=== PATIENT | male | born 1980 | race African-American/Black ===

== ENCOUNTER 2019-01-19 12:50 | Emergency (ER) | payer BC ==
[2019-01-19 14:11] LABS: Absolute Lymphocytes (CBC) 1.1 K/uL (0.7-4.9); Absolute Monocytes 0.5 K/uL (0.1-1.3); Absolute Neutrophil 6.3 K/uL (1.8-8.0); Basophils % 0.6 % (0-1.3); Eosinophils % 1.3 % (0-4.4); Hematocrit 39.3 % (39.6-49.0); Lymphocytes % 13.6 % (15.3-44.8); Monocytes % 6.1 % (3.3-12.3); RBC Red Blood Cell Count 5.06 M/uL (4.33-5.43)
[2019-01-19] MEDS ORDERED: ACETAMINOPHEN 500 MG TAB ONE (14:21)
[2019-01-19 14:25] LABS: Albumin 3.5 g/dL (3.4-5.0); Bilirubin Total 0.9 mg/dL (0.2-1.0); Potassium 3.9 mmol/L (3.5-5.1); Protein, Total 7.6 g/dL (6.4-8.2)
[2019-01-19 14:38] LABS: Urine Blood NEGATIVE (NEG); Urine Glucose NEGATIVE (NEG); Urine Protein 2+ (NEG); Urine Specific Gravity 1.015 (1.005-1.030); Urine pH 5.5 (5.0-7.0)
[2019-01-19 14:51] LABS: Urine Bacteria <20 /HPF (NONE SEEN); Urine RBC <5 /HPF (NONE SEEN)
[2019-01-19 14:52] LABS: Urine Culture Reflex Order NOT NEEDED
--- NOTE | 2019-01-19 15:39 | EDPHYS ---
Physician Documentation [facility] Name: Benjamin Baer III Age: 39 yrs Sex: Male : 1980 Arrival Date: 01/19/2019 Time: 12:51 Bed 25 Private MD: David Cabrera ED Physician Ananda Camejo HPI: 01/19 15:33 This 39 yrs old Black Male presents to ER via Ambulatory with complaints of Blood wa Pressure Problem. 15:33 elevated blood pressure. states feels the top of his head tingling. denies FREEMAN. denies wa dizziness, CP or SOB. Onset: The symptoms/episode began/occurred today. Severity of symptoms: At their worst the symptoms were moderate in the emergency department the symptoms are unchanged. The patient has experienced similar episodes in the past, multiple times. The patient has not recently seen a physician. admits to medication compliance. states has renal insufficiency and getting f/u for it. also states have been trying to lose weight. Historical: - Allergies: 13:13 No Known Allergies; sv - Home Meds: 13:13 lisinopril 20 mg Oral tab 1 tab once daily [Active]; hydralazine 50 mg Oral tab three sv times a day [Active]; carvedilol 25 mg oral tab 1 tab 2 times per day [Active]; spironolactone 25 mg Oral tab 1 tab once daily [Active]; - PMHx: 13:13 Hypertension; kidney failure; sv - PSHx: 13:13 None; sv - Immunization history:: Flu vaccine is up to date. - Social history:: Smoking status: Patient/guardian denies using tobacco. - Ebola Screening: : No symptoms or risks identified at this time. - Family history:: pertinent for hypertension. - Hospitalizations: : No recent hospitalization is reported. ROS: 15:35 Constitutional: Negative for fever, chills, and weight loss, Eyes: Negative for injury, wa pain, redness, and discharge, ENT: Negative for injury, pain, and discharge, Neck: Negative for injury, pain, and swelling, Cardiovascular: Negative for chest pain, palpitations, and edema, Respiratory: Negative for shortness of breath, cough, wheezing, and pleuritic chest pain, Abdomen/GI: Negative for abdominal pain, nausea, vomiting, diarrhea, and constipation, Back: Negative for injury and pain, : Negative for injury, bleeding, discharge, and swelling, MS/Extremity: Negative for injury and deformity, Skin: Negative for injury, rash, and discoloration. 15:35 Neuro: Positive for top of scalp tingling, Negative for altered mental status, dizziness, gait disturbance, headache, loss of consciousness, seizure activity, speech changes, syncope, visual changes, weakness. 15:35 All other systems are negative. Exam: 15:35 Constitutional: This is a well developed, well nourished patient who is awake, alert, wa and in no acute distress. Head/Face: Normocephalic, atraumatic. 15:35 Eyes: Pupils equal round and reactive to light, extra-ocular motions intact. Lids and lashes normal. Conjunctiva and sclera are non-icteric and not injected. Cornea within normal limits. Periorbital areas with no swelling, redness, or edema. ENT: Nares patent. No nasal discharge, no septal abnormalities noted. Tympanic membranes are normal and external auditory canals are clear. Oropharynx with no redness, swelling, or masses, exudates, or evidence of obstruction, uvula midline. Mucous membranes moist. Neck: Trachea midline, no thyromegaly or masses palpated, and no cervical lymphadenopathy. Supple, full range of motion without nuchal rigidity, or vertebral point tenderness. No Meningismus. Chest/axilla: Normal chest wall appearance and motion. Nontender with no deformity. No lesions are appreciated. Cardiovascular: Regular rate and rhythm with a normal S1 and S2. No gallops, murmurs, or rubs. Normal PMI, no JVD. No pulse deficits. Respiratory: Lungs have equal breath sounds bilaterally, clear to auscultation and percussion. No rales, rhonchi or wheezes noted. No increased work of breathing, no retractions or nasal flaring. Abdomen/GI: Soft, non-tender, with normal bowel sounds. No distension or tympany. No guarding or rebound. No evidence of tenderness throughout. Back: No spinal tenderness. No costovertebral tenderness. Full range of motion. Skin: Warm, dry with normal turgor. Normal color with no rashes, no lesions, and no evidence of cellulitis. MS/ Extremity: Pulses equal, no cyanosis. Neurovascular intact. Full, normal range of motion. Psych: Awake, alert, with orientation to person, place and time. Behavior, mood, and affect are within normal limits. 15:35 Constitutional: The patient appears in no acute distress, obese 15:35 Neuro: Orientation: is normal, Mentation: is normal, Cranial nerves: grossly normal, Cerebellar function: is grossly normal, Motor: is normal, Sensation: is normal, Gait: is steady. Vital Signs: 13:13 BP 178 / 112; Pulse 89; Resp 18; Temp 97.8; Pulse Ox 97% ; Weight 136.98 kg; Height 5 sv ft. 10 in. (177.80 cm); Pain 1/10; 13:26 BP 170 / 105; Pulse 88; Resp 19; Pulse Ox 100% on R/A; ca1 13:35 BP 165 / 110; Pulse 87; Resp 19; Pulse Ox 99% on R/A; ca1 14:01 BP 159 / 108; Pulse 76; Resp 18; Pulse Ox 99% on R/A; ca1 14:30 BP 173 / 109; Pulse 75; Resp 18; Pulse Ox 99% on R/A; ca1 15:00 BP 175 / 115; Pulse 75; Resp 19; Pulse Ox 99% on R/A; ca1 15:15 BP 190 / 119; Pulse 74; Resp 19; Pulse Ox 98% on R/A; ca1 15:30 BP 171 / 106; Pulse 74; Resp 18; Pulse Ox 100% on R/A; ca1 13:13 Body Mass Index 43.33 (136.98 kg, 177.80 cm) sv MDM: 13:15 Patient medically screened. wa 15:36 Differential Diagnosis elevated BP. will check for interval worsening of renal fxn. wa consider po meds (pt's own) as due to evenign dose any way. 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 Data reviewed: vital signs, nurses notes, lab test result(s). Test interpretation: by ED physician or midlevel provider: labs noted for proteinuria and renal insufficiency. pt knows his baseline. baseline unchanged. 15:38 Response to treatment: the patient's symptoms have markedly improved after treatment. wa 15:40 ED course: made to take own dose of evening BP meds. pt asymptomatic at d/c. 01/19 13:42 Order name: CMP; Complete Time: 15:18 01/19 13:42 Order name: CBC with Diff; Complete Time: 15:18 ok 01/19 13:42 Order name: Urine Dipstick-Ancillary (obtain specimen); Complete Time: 14:11 ok 01/19 13:42 Order name: Urine Microscopic Only; Complete Time: 15:18 ok 01/19 14:20 Order name: Urine Dipstick--Ancillary (enter results); Complete Time: 15:17 [facility] 01/19 13:42 Order name: Cardiac monitoring; Complete Time: 14:10 ok Administered Medications: 14:05 Drug: Tylenol 1000 mg Route: PO; ca1 15:50 Follow up: Response: No adverse reaction; Pain is decreased ca1 Disposition: 01/19/19 15:39 Discharged to Home. Impression: Elevated Blood Pressure. - Condition is Stable. - Discharge Instructions: Hypertension. - Medication Reconciliation Form, Thank You Letter, Antibiotic Education, Prescription Opioid Use form. - Follow up: Private Physician; When: 2 - 3 days; Reason: Recheck today's complaints. - Problem is new. - Symptoms have improved. - Notes: take your medication as prescribed. follow up with your doctor as discussed for further evaluation Signatures: Dispatcher [employer] Lynda Mandel RN RN Ananda Camejo MD MD ok Nadine Govea RN RN ca1 Corrections: (The following items were deleted from the chart) 15:59 15:39 01/19/2019 15:39 Discharged to Home. Impression: Elevated Blood Pressure. ca1 Condition is Stable. Forms are Medication Reconciliation Form, Thank You Letter, Antibiotic Education, Prescription Opioid Use. Follow up: Private Physician; When: 2 - 3 days; Reason: Recheck today's complaints. Problem is new. Symptoms have improved. wa
--- NOTE | 2019-01-19 15:39 | ER ---
Nurse's Notes [facility] Name: Benjamin Baer III Age: 39 yrs Sex: Male : 1980 Arrival Date: 01/19/2019 Time: 12:51 Bed 25 Private MD: David Cabrera Diagnosis: Elevated Blood Pressure Presentation: 01/19 13:11 Presenting complaint: Patient states: HTN, tingling on the top of the head and pain on sv the right side. Hx of kidney failure and HTN. Transition of care: patient was not received from another setting of care. Onset of symptoms was January 19, 2019. Care prior to arrival: None. 13:11 Method Of Arrival: Ambulatory sv 13:11 Acuity: FAUZIA 2 sv 13:37 Risk Assessment: Do you want to hurt yourself or someone else? Patient reports no ca1 desire to harm self or others. Initial Sepsis Screen: Does the patient meet any 2 criteria? No. Patient's initial sepsis screen is negative. Does the patient have a suspected source of infection? No. Patient's initial sepsis screen is negative. Historical: - Allergies: 13:13 No Known Allergies; sv - Home Meds: 13:13 lisinopril 20 mg Oral tab 1 tab once daily [Active]; hydralazine 50 mg Oral tab three sv times a day [Active]; carvedilol 25 mg oral tab 1 tab 2 times per day [Active]; spironolactone 25 mg Oral tab 1 tab once daily [Active]; - PMHx: 13:13 Hypertension; kidney failure; sv - PSHx: 13:13 None; sv - Immunization history:: Flu vaccine is up to date. - Social history:: Smoking status: Patient/guardian denies using tobacco. - Ebola Screening: : No symptoms or risks identified at this time. - Family history:: pertinent for hypertension. - Hospitalizations: : No recent hospitalization is reported. Screenin:16 Abuse screen: Denies threats or abuse. Denies injuries from another. Nutritional ca1 screening: No deficits noted. Tuberculosis screening: No symptoms or risk factors identified. Fall Risk None identified. Assessment: 13:16 General: Appears in no apparent distress. comfortable, Behavior is calm, cooperative, ca1 appropriate for age. Neuro: Level of Consciousness is awake, alert, obeys commands, Oriented to person, place, time, situation. Cardiovascular: Heart tones S1 S2 present Capillary refill < 3 seconds Patient's skin is warm and dry. Respiratory: Airway is patent Respiratory effort is even, unlabored, Respiratory pattern is regular, symmetrical, Breath sounds are clear bilaterally. GI: Abdomen is round non-distended, Bowel sounds present X 4 quads. Abd is soft and non tender X 4 quads. : No deficits noted. No signs and/or symptoms were reported regarding the genitourinary system. EENT: No deficits noted. No signs and/or symptoms were reported regarding the EENT system. Derm: Skin is intact, is healthy with good turgor, Skin is pink, warm \T\ dry. Musculoskeletal: Circulation, motion, and sensation intact. Capillary refill < 3 seconds. 13:16 Pain: Complains of pain in posterior aspect of right lateral abdomen Pain does not ca1 radiate. Pain at worst was 6 out of 10 on a pain scale. Pain began 4-5 days ago Is intermittent. 14:18 Reassessment: Patient appears in no apparent distress at this time. Patient and/or ca1 family updated on plan of care and expected duration. Pain level reassessed. Patient is alert, oriented x 3, equal unlabored respirations, skin warm/dry/pink. Family at bedside. 15:23 Reassessment: Patient appears in no apparent distress at this time. Patient is alert, ca1 oriented x 3, equal unlabored respirations, skin warm/dry/pink. Dr. Camejo at bedside. 15:46 Reassessment: Dr. Camejo at bedside. Pt denies dizziness, headaches .Pt A\T\Ox4. Stable, ca1 no symptoms reported. Encouraged to continue home meds, visit PCP, dietary and lifestyle modifications instructed. Vital Signs: 13:13 BP 178 / 112; Pulse 89; Resp 18; Temp 97.8; Pulse Ox 97% ; Weight 136.98 kg; Height 5 sv ft. 10 in. (177.80 cm); Pain 1/10; 13:26 BP 170 / 105; Pulse 88; Resp 19; Pulse Ox 100% on R/A; ca1 13:35 BP 165 / 110; Pulse 87; Resp 19; Pulse Ox 99% on R/A; ca1 14:01 BP 159 / 108; Pulse 76; Resp 18; Pulse Ox 99% on R/A; ca1 14:30 BP 173 / 109; Pulse 75; Resp 18; Pulse Ox 99% on R/A; ca1 15:00 BP 175 / 115; Pulse 75; Resp 19; Pulse Ox 99% on R/A; ca1 15:15 BP 190 / 119; Pulse 74; Resp 19; Pulse Ox 98% on R/A; ca1 15:30 BP 171 / 106; Pulse 74; Resp 18; Pulse Ox 100% on R/A; ca1 13:13 Body Mass Index 43.33 (136.98 kg, 177.80 cm) sv ED Course: 12:51 Patient arrived in ED. tw3 12:51 David Cabrera MD is Private Physician. tw3 13:12 Triage completed. sv 13:14 Arm band placed on. sv 13:15 Ananda Camejo MD is Attending Physician. wa 13:16 Patient has correct armband on for positive identification. Bed in low position. Call ca1 light in reach. Side rails up X 1. Pulse ox on. NIBP on. Warm blanket given. 13:16 No provider procedures requiring assistance completed. ca1 13:32 Nadine Govea, [place] is Primary Nurse. ca1 13:58 Initial lab(s) drawn, by ut, sent to lab. Inserted saline lock: 20 gauge in left lt1 forearm, using aseptic technique. 15:58 IV discontinued, intact, bleeding controlled, No redness/swelling at site. Pressure ca1 dressing applied. Administered Medications: 14:05 Drug: Tylenol 1000 mg Route: PO; ca1 15:50 Follow up: Response: No adverse reaction; Pain is decreased ca1 Outcome: 15:39 Discharge ordered by . wa 15:58 Discharged to home ambulatory. ca1 15:58 Condition: stable 15:58 Discharge instructions given to patient, Instructed on discharge instructions, follow up and referral plans. Demonstrated understanding of instructions, follow-up care. 15:59 Patient left the ED. ca1 Signatures: Lynda Garcia, AL MELENDEZ Elvira Tracey tw3 Ananda Camejo MD MD ny Nadine Govea RN RN ca1 Padmini Tolentino lt1 Corrections: (The following items were deleted from the chart) 13:14 13:11 Acuity: FAUZIA 3 sv sv 13:37 13:16 Assist provider with bone marrow aspiration ca1 ca1 13:39 13:16 Pain: Complains of pain in posterior aspect of right lateral abdomen Pain does ca1 not radiate. Pain currently is 6 out of 10 on a pain scale. Pain began Is intermittent, ca1
== END 2019-01-19 15:59 | disposition home or self-care (01) ==
LOC: ER 12:50
DX: I12.9 Hypertensive chronic kidney disease with stage 1 through stage 4 chronic kidney disease, or unspecified chronic kidney disease (principal); N18.9 Chronic kidney disease, unspecified
CPT/HCPCS: 36415; 80053; 81003; 81015; 85025; 99284

== ENCOUNTER 2020-04-05 10:55 | Observation (INO) | payer BC ==
--- OUTSIDE RECORDS SUMMARY | 2020-04-05 11:37 | XMS REPORT | Continuity of Care Document ---
:1980 Author Organization [facility] t Address [address] [place] [address] Dr. Sandoval [address] [place] [id number] Care Team Providers Name Role Phone Unavailable Unavailable Unavailable Problems This patient has no known problems. Allergies, Adverse Reactions, Alerts This patient has no known allergies or adverse reactions. Medications This patient has no known medications. Procedures This patient has no known procedures. Results This patient has no known results.
[2020-04-05 12:24] LABS: Absolute Lymphocytes (CBC) 1.2 K/uL (0.7-4.9); Basophils % 0.5 % (0-1.3); Hematocrit 33.6 % (39.6-49.0); MPV 9.2 fL (7.6-11.3)
--- NOTE | 2020-04-05 13:11 | ER ---
Nurse's Notes [facility] Name: Benjamin Baer III Age: 40 yrs Sex: Male : 1980 Arrival Date: 04/05/2020 Time: 11:06 Bed 17 Private MD: Diagnosis: Hyperkalemia;Acute on Chronic Renal Failure Presentation: 04/05 11:17 Chief complaint: Dry mouth z 1 hour. 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 hb Coronavirus screen: Proceed with normal triage. Ebola Screen: No symptoms or risks identified at this time. Initial Sepsis Screen: Does the patient meet any 2 criteria? No. Patient's initial sepsis screen is negative. Does the patient have a suspected source of infection? No. Patient's initial sepsis screen is negative. Risk Assessment: Do you want to hurt yourself or someone else? Patient reports no desire to harm self or others. Onset of symptoms was April 05, 2020. 11:17 Method Of Arrival: Ambulatory hb 11:17 Acuity: FAUZIA 3 hb Historical: - Allergies: 11:19 No Known Allergies; hb - Home Meds: 11:19 carvedilol 25 mg Oral tab 1 tab 2 times per day [Active]; hydralazine 50 mg Oral tab hb three times a day [Active]; lisinopril 20 mg Oral tab 1 tab once daily [Active]; spironolactone 25 mg Oral tab 1 tab once daily [Active]; - PMHx: 11:19 Hypertension; kidney failure; hb - PSHx: 11:19 None; hb - Immunization history:: Adult Immunizations up to date. - Social history:: Smoking status: Patient denies any tobacco usage or history of. Screenin:29 Abuse screen: Denies threats or abuse. Nutritional screening: No deficits noted. Tuberculosis screening: No symptoms or risk factors identified. Fall Risk None identified. Assessment: 12:30 General: Appears in no apparent distress. Behavior is calm, cooperative, appropriate for age. Pain: Denies pain. Neuro: Level of Consciousness is awake, alert, Oriented to person, place, time, situation. Cardiovascular: Capillary refill < 3 seconds Patient's skin is warm and dry. Respiratory: Airway is patent Respiratory effort is even, unlabored. GI: Abdomen is obese. :. EENT: Reports dry mouth, maybe related to a new medication he started about 3 weeks ago, amlodipine. EENT: Reports. Derm: Skin is intact, is healthy with good turgor. 13:30 Reassessment: Patient and/or family updated on plan of care and expected duration. Pain ah level reassessed. Patient is alert, oriented x 3, equal unlabored respirations, skin warm/dry/pink. awaiting on lab results Patient denies pain at this time. 14:00 Reassessment: No reaction noted to medications. 15:00 Reassessment: Awaiting on room assignment. 15:50 Reassessment: Attempted to call report, Nurse took pt down and not available at this ah time. Vital Signs: 11:17 BP 116 / 75; Pulse 70; Resp 16; Temp 97.1; Pulse Ox 96% ; Weight 131.54 kg; Height 5 hb ft. 10 in. (177.80 cm); Pain 0/10; 12:10 BP 134 / 80 LA Supine (man/lg); Pulse 65; Pulse Ox 98% on R/A; jp3 12:13 BP 124 / 73 LA Sitting (man/lg); Pulse 73; Pulse Ox 99% on R/A; jp3 12:15 BP 119 / 72 LA Standing (auto/lg); Pulse 69; Pulse Ox 97% on R/A; jp3 13:00 BP 131 / 77; Pulse 76; Resp 16; Pulse Ox 99% ; ah 14:00 BP 113 / 68; Pulse 65; Resp 16; Pulse Ox 97% ; ah 15:00 BP 122 / 78; Pulse 59; Resp 18; Pulse Ox 98% ; ah 11:17 Body Mass Index 41.61 (131.54 kg, 177.80 cm) hb 12:10 pt states: "felt uncomfortable; like falling backwards" jp3 12:13 pt states: " feel normal" jp3 12:15 pt states: "feel normal" jp3 ED Course: 11:06 Patient arrived in ED. hb 11:16 Chente Lara MD is Attending Physician. kdr 11:18 Triage completed. hb 11:19 Arm band placed on. hb 11:40 Bed in low position. Call light in reach. Verbal reassurance given. Pulse ox on. NIBP jp3 on. 12:00 Initial lab(s) drawn, by me, sent to lab. Patient maintains SpO2 saturation greater jp3 than 95% on room air. 12:29 Carline Graham, RN is Primary Nurse. 12:49 Notified ED physician of a critical lab result(s). Potassium 6.0. ll1 13:11 Luc Ortiz MD is Hospitalizing Provider. kdr 13:11 Inserted saline lock: 20 gauge in right antecubital area, using aseptic technique. jp3 14:25 EKG done, by ED staff, reviewed by Chente Lara MD. jp3 16:04 No provider procedures requiring assistance completed. Patient admitted, IV remains in ah place. Administered Medications: 12:35 Drug: Insulin Regular Human 10 units {Co-Signature: vc (Marry Richter RN).} Route: ah IVP; Site: right antecubital; 15:39 Follow up: Response: No adverse reaction 13:00 Drug: Albuterol - atroVENT (3:1) (2.5 mg - 0.5 mg) 3 ml Route: Nebulizer; 15:40 Follow up: Response: No adverse reaction 13:35 Drug: D50W 50 ml Route: IVP; Site: right antecubital; 15:39 Follow up: Response: No adverse reaction 13:35 Drug: Sodium Bicarbonate 1 amp Route: IVP; Site: right antecubital; 15:39 Follow up: Response: No adverse reaction 13:45 Drug: Calcium Gluconate 1 grams Route: IVPB; Infused Over: 60 mins; Site: right ah antecubital; 15:40 Follow up: Response: No adverse reaction; IV Status: Completed infusion 15:40 Follow up: Response: No adverse reaction; IV Status: Completed infusion Outcome: 13:11 Decision to Hospitalize by Provider. kdr 16:02 Admitted to Med/surg accompanied by tech, via wheelchair, room 207, with chart, Report called to AL Prasad 16:02 Condition: improved 16:02 Instructed on the need for admit. 16:30 Patient left the ED. Signatures: Chente Lara MD MD kdr Baxter, Heather RN RN Terrell Arrington jp3 Carline Graham RN RN Elmo Foster RN RN 1 Marry Richter RN vc Corrections: (The following items were deleted from the chart) 11:49 11:17 Acuity: FAUZIA 4 hb hb 15:09 12:35 Sodium Bicarbonate 1 amp IVP in right antecubital ah ah 15:10 12:35 D50W 50 ml IVP in right antecubital ah ah
[2020-04-05] MEDS ORDERED: ALBUTEROL 2.5 MG/3 ML NEB SOL ONE (13:12)
[2020-04-05] MEDS ORDERED: IPRATROPIUM BROM 0.5MG/2.5ML ONE (13:12)
--- NOTE | 2020-04-05 13:12 | EDPHYS ---
Physician Documentation [facility] Name: Benjamin Baer III Age: 40 yrs Sex: Male : 1980 Arrival Date: 04/05/2020 Time: 11:06 Bed 17 Private MD: ED Physician Chente Lara HPI: 04/05 11:39 This 40 yrs old Black Male presents to ER via Ambulatory with complaints of Dry Mouth. kdr 11:39 The patient states that he was at work this morning and he suddenly began to feel like kdr his mouth was dry and his tongue was numb. He tried drinking water and that did not substantially resolve the sensation. He is normally very hypertensive but today in the ED, he is noted to be relatively hypotensive with SBP less than 120. He is otherwise completely asymptomatic . Onset: The symptoms/episode began/occurred suddenly, just prior to arrival. Severity of symptoms: At their worst the symptoms were mild in the emergency department the symptoms have improved moderately. The patient has not experienced similar symptoms in the past. The patient has been recently seen by a physician: Routine care - did have addition of Amlodipine several weeks ago but has not consistently taken it nor has he taken it today. Historical: - Allergies: 11:19 No Known Allergies; hb - Home Meds: 11:19 carvedilol 25 mg Oral tab 1 tab 2 times per day [Active]; hydralazine 50 mg Oral tab hb three times a day [Active]; lisinopril 20 mg Oral tab 1 tab once daily [Active]; spironolactone 25 mg Oral tab 1 tab once daily [Active]; - PMHx: 11:19 Hypertension; kidney failure; hb - PSHx: 11:19 None; hb - Immunization history:: Adult Immunizations up to date. - Social history:: Smoking status: Patient denies any tobacco usage or history of. ROS: 11:39 Constitutional: Negative for fever, chills, and weight loss, Eyes: Negative for injury, kdr pain, redness, and discharge, Neck: Negative for injury, pain, and swelling, Cardiovascular: Negative for chest pain, palpitations, and edema, Respiratory: Negative for shortness of breath, cough, wheezing, and pleuritic chest pain, Abdomen/GI: Negative for abdominal pain, nausea, vomiting, diarrhea, and constipation, Back: Negative for injury and pain, : Negative for injury, bleeding, discharge, and swelling, MS/Extremity: Negative for injury and deformity, Skin: Negative for injury, rash, and discoloration, Neuro: Negative for headache, weakness, numbness, tingling, and seizure activity. Psych: Negative for depression, anxiety, suicide ideation, homicidal ideation, and hallucinations, Allergy/Immunology: Negative for hives, rash, and allergies, Endocrine: Negative for neck swelling, polydipsia, polyuria, polyphagia, and marked weight changes, Hematologic/Lymphatic: Negative for swollen nodes, abnormal bleeding, and unusual bruising. 11:39 ENT: Positive for Dry tongue, Negative for Teeth pain tinnitus, rhinorrhea. Exam: 11:39 Constitutional: This is a well developed, well nourished patient who is awake, alert, kdr and in no acute distress. Head/Face: Normocephalic, atraumatic. Eyes: Pupils equal round and reactive to light, extra-ocular motions intact. Lids and lashes normal. Conjunctiva and sclera are non-icteric and not injected. Cornea within normal limits. Periorbital areas with no swelling, redness, or edema. Neck: Trachea midline, no thyromegaly or masses palpated, and no cervical lymphadenopathy. Supple, full range of motion without nuchal rigidity, or vertebral point tenderness. No Meningismus. Chest/axilla: Normal chest wall appearance and motion. Nontender with no deformity. No lesions are appreciated. Cardiovascular: Regular rate and rhythm with a normal S1 and S2. No gallops, murmurs, or rubs. Normal PMI, no JVD. No pulse deficits. Respiratory: Lungs have equal breath sounds bilaterally, clear to auscultation and percussion. No rales, rhonchi or wheezes noted. No increased work of breathing, no retractions or nasal flaring. Abdomen/GI: Soft, non-tender, with normal bowel sounds. No distension or tympany. No guarding or rebound. No evidence of tenderness throughout. Back: No spinal tenderness. No costovertebral tenderness. Full range of motion. Skin: Warm, dry with normal turgor. Normal color with no rashes, no lesions, and no evidence of cellulitis. MS/ Extremity: Pulses equal, no cyanosis. Neurovascular intact. Full, normal range of motion. Neuro: Awake and alert, GCS 15, oriented to person, place, time, and situation. Cranial nerves II-XII grossly intact. Motor strength 5/5 in all extremities. Sensory grossly intact. Cerebellar exam normal. Normal gait. Psych: Awake, alert, with orientation to person, place and time. Behavior, mood, and affect are within normal limits. Vital Signs: 11:17 BP 116 / 75; Pulse 70; Resp 16; Temp 97.1; Pulse Ox 96% ; Weight 131.54 kg; Height 5 hb ft. 10 in. (177.80 cm); Pain 0/10; 12:10 BP 134 / 80 LA Supine (man/lg); Pulse 65; Pulse Ox 98% on R/A; jp3 12:13 BP 124 / 73 LA Sitting (man/lg); Pulse 73; Pulse Ox 99% on R/A; jp3 12:15 BP 119 / 72 LA Standing (auto/lg); Pulse 69; Pulse Ox 97% on R/A; jp3 13:00 BP 131 / 77; Pulse 76; Resp 16; Pulse Ox 99% ; ah 14:00 BP 113 / 68; Pulse 65; Resp 16; Pulse Ox 97% ; ah 15:00 BP 122 / 78; Pulse 59; Resp 18; Pulse Ox 98% ; ah 11:17 Body Mass Index 41.61 (131.54 kg, 177.80 cm) hb 12:10 pt states: "felt uncomfortable; like falling backwards" jp3 12:13 pt states: " feel normal" jp3 12:15 pt states: "feel normal" jp3 MDM: 13:11 Patient medically screened. kdr 18:29 Data reviewed: vital signs, nurses notes, lab test result(s), radiologic studies. kdr Counseling: I had a detailed discussion with the patient and/or guardian regarding: the historical points, exam findings, and any diagnostic results supporting the discharge/admit diagnosis, lab results, radiology results, the need for outpatient follow up. 04/05 11:37 Order name: CBC with Diff; Complete Time: 12:51 kdr 04/05 11:37 Order name: Chem 7; Complete Time: 12:51 kdr 04/05 12:38 Order name: Urine Dipstick--Ancillary (enter results) em1 04/05 14:49 Order name: Thyroid Stimulating Hormone EDMS 04/05 14:49 Order name: CBC with Automated Diff [facility] 04/05 14:49 Order name: CBC with Automated Diff [facility] 04/05 14:49 Order name: Comprehensive Metabolic Panel [facility] 04/05 14:49 Order name: Comprehensive Metabolic Panel [facility] 04/05 14:53 Order name: Basic Metabolic Panel [facility] 04/05 11:37 Order name: Urine Dipstick-Ancillary (obtain specimen); Complete Time: 12:24 [facility] 04/05 11:37 Order name: Orthostatic Blood Pressure; Complete Time: 12:24 [facility] 04/05 14:48 Order name: CONS Pharmacy Consult [facility] 04/05 14:49 Order name: CONS Physician Consult [facility] 04/05 14:49 Order name: Renal EDSC Administered Medications: 12:35 Drug: Insulin Regular Human 10 units {Co-Signature: vc (Marry Richter RN).} Route: ah IVP; Site: right antecubital; 15:39 Follow up: Response: No adverse reaction 13:00 Drug: Albuterol - atroVENT (3:1) (2.5 mg - 0.5 mg) 3 ml Route: Nebulizer; ah 15:40 Follow up: Response: No adverse reaction ah 13:35 Drug: D50W 50 ml Route: IVP; Site: right antecubital; ah 15:39 Follow up: Response: No adverse reaction ah 13:35 Drug: Sodium Bicarbonate 1 amp Route: IVP; Site: right antecubital; ah 15:39 Follow up: Response: No adverse reaction ah 13:45 Drug: Calcium Gluconate 1 grams Route: IVPB; Infused Over: 60 mins; Site: right antecubital; 15:40 Follow up: Response: No adverse reaction; IV Status: Completed infusion ah 15:40 Follow up: Response: No adverse reaction; IV Status: Completed infusion Disposition: 04/05/20 13:11 Hospitalization ordered by Luc Ortiz for Observation. Preliminary diagnosis are Hyperkalemia, Acute on Chronic Renal Failure. - Bed requested for Telemetry/MedSurg (observation). - Status is Observation. ah - Condition is Fair. - Problem is new. - Symptoms have improved. Signatures: Dispatcher [employer] EDSC Chente Lara MD MD kdr Martinez, Eric em1 Mickie Ingram, RN RN Carline Villalba, [place] RN Marry Richter RN Corrections: (The following items were deleted from the chart) 14:55 14:49 Basic Metabolic Panel ordered. EDMS EDMS 15:27 13:11 Hospitalization Ordered by Luc Ortiz MD for Observation. Preliminary em1 diagnosis is Hyperkalemia; Acute on Chronic Renal Failure. Bed requested for Telemetry/MedSurg (observation). Status is Observation. Condition is Fair. Problem is new. Symptoms have improved. kdr 16:30 15:27 04/05/2020 13:11 Hospitalization Ordered by Luc Ortiz MD for Observation. Preliminary diagnosis is Hyperkalemia; Acute on Chronic Renal Failure. Bed requested for Telemetry/MedSurg (observation). Status is Observation. Condition is Fair. Problem is new. Symptoms have improved. em1
[2020-04-05] MEDS ORDERED: SODIUM BICARB 50 MEQ/50ML VIAL ONE (13:13)
[2020-04-05] MEDS ORDERED: D50W 25 GM/50 ML SYRINGE/VIAL IV ONE (13:13)
[2020-04-05] MEDS ORDERED: INSULIN -REGULAR HUMAN 50 UNIT/0.5 ML ML ONE ×3 (13:13→13:27)
[2020-04-05 13:27] LABS: Urine Blood NEGATIVE (NEG); Urine Glucose NEGATIVE (NEG); Urine Protein NEGATIVE (NEG); Urine pH 5.5 (5.0-7.0)
[2020-04-05] MEDS ORDERED: CALCIUM GLUCONATE 1gm/100 ML NS (4.65 mEq/100mL) IV ONE ×2 (13:30)
[2020-04-05] MEDS ORDERED: HYDRALAZINE HCL 20 MG/ML VIAL IV PRN (14:41)
[2020-04-05] MEDS ORDERED: MORPHINE 2 MG/ML SYR IV PRN (14:42)
[2020-04-05] MEDS ORDERED: SOD POLYSTYREN SUL 15 GM/60 ML UCUP PO ONE (15:00)
[2020-04-05] MEDS ORDERED: SODIUM BICARB 50 MEQ/50ML VIAL IV ONE (15:00)
--- NOTE | 2020-04-05 15:51 | P.HP ---
Certification for Inpatient Patient admitted to: Observation With expected LOS: <2 Midnights Patient will require the following post-hospital care: None Practitioner: I am a practitioner with admitting privileges, knowledge of patient current condition, hospital course, and medical plan of care. Services: Services provided to patient in accordance with Admission requirements found in Title 42 Section 412.3 of the Code of Federal Regulations Patient History Date of Service: 04/05/20 Reason for admission: dry mouth and throat History of Present Illness: 40 yr old AA male with obesity , HTN , CKD stage III presumed due to HTN nephrosclerosis , with bcr 2.5-2.[address] Guo, On multiple home meds for HTN , s/p recently added Norvasc 2 weeks ago , also advised clonidine 0.2 bid prn elevated systolic above 150 with daily use since last 1 week , developed worsening dry mouth and throat since last 2 days. He denies any dizziness, admit to kilt leg swelling . on arrival at ER , noted with k of 6.2 with cr of 3.1 . no EKG chnages . He is bring admitted for ARF and hyperkalemia . He denies any new salt intake . He is worried about his weight and asking questions on weight loss surgery Home medications list reviewed: Yes - Past Medical/Surgical History Has patient received pneumonia vaccine in the past: No -: HTN, OBESITY Past Surgical History: Reviewed- Non-Contributory - Family History Father -: Hypertension - Social History Smoking Status: Never smoker Smoking therapy provided: No Patient receptive to therapy: No Alcohol use: No CD- Drugs: No Caffeine use: No Place of Residence: Home Review of Systems 10-point ROS is otherwise unremarkable Physical Examination - Vital Signs Blood Pressure: 131/66 Pulse: 74 Respirations: 16 Pulse Ox (%): 99 - Physical Exam General: Alert, In no apparent distress, Oriented x3, Obese HEENT: Atraumatic, Normocephalic, PERRLA Neck: Supple, 2+ carotid pulse no bruit, JVD not distended Cardiovascular: Regular rate/rhythm, Normal S1 S2 Gastrointestinal: Normal bowel sounds, Soft and benign Musculoskeletal: No clubbing, No swelling, Swelling (TRACE TO 1+ B/L PE), Other (TRACE PEDAL EDEMA B/L ) Integumentary: No rashes, No breakdown External genitalia: Deferred - Studies Laboratory Data (last 24 hrs) 04/05/20 12:05: Sodium 136, Potassium 6.0 H*, BUN 49 H, Creatinine 3.19 H, Glucose 111 H 04/05/20 12:05: WBC 6.9, Hgb 11.2 L, Hct 33.6 L, Plt Count 160 Imagings Data: cxr -CLEAR Assessment and Plan - Problems (Diagnosis) (1) ARF (acute renal failure) Current Visit: Yes Status: Acute (2) CKD (chronic kidney disease) stage 3, GFR 30-59 ml/min Current Visit: Yes Status: Acute (3) HTN (hypertension) Current Visit: Yes Status: Acute (4) Hyperkalemia Current Visit: Yes Status: Acute (5) Metabolic acidosis Current Visit: Yes Status: Acute - Advance Directives Does patient have a Living Will: No Does patient have a Durable POA for Healthcare: No Physician Review: Patient Assessed, Agree with Above Assessment and Plan Physician Review Additional Text: # Hyperkalemia - due to losartan and Aldactone use - will hold both now -k- lowering cocktail now -correct met acidosis Dry mouth - may be due to clonidine use -hold clonidine for now -start biotene spray tid # ARF on CKD - may be due to medication use - hold losartan and aldactone - monitor for now -consider Trental use if proteinuria - need for weight loss for 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
[2020-04-05] MEDS ORDERED: NA CHLORIDE 0.9% 1,000 ML IV SCH (16:00)
[2020-04-05] MEDS: INSULIN -REGULAR HUMAN 50 UNIT/0.5 ML ML SQ SCH ×2 (16:30→19:51)
[2020-04-05 16:43] VITALS: O2SAT 98
[2020-04-05] MEDS: CHLORTHALIDONE 25 MG TAB PO SCH (16:54)
[2020-04-05 17:23] VITALS: BMI 41.5
[2020-04-05] MEDS: carvediloL 25 MG TAB PO SCH (17:47)
[2020-04-05 17:52] LABS: Potassium 5.5 mmol/L (3.5-5.1)
[2020-04-05] MEDS: HYDRALAZINE HCL 25 MG TABLET PO SCH (19:50)
[2020-04-06] MEDS: carvediloL 25 MG TAB PO SCH (05:32)
[2020-04-06 06:00] LABS: Absolute Lymphocytes (CBC) 1.4 K/uL (0.7-4.9); Basophils % 0.5 % (0-1.3); Hematocrit 34.9 % (39.6-49.0); Lymphocytes % 23.8 % (15.3-44.8); MPV 8.7 fL (7.6-11.3); RBC Red Blood Cell Count 4.34 M/uL (4.33-5.43)
[2020-04-06 06:50] LABS: Albumin 3.3 g/dL (3.4-5.0); Bilirubin Total 0.5 mg/dL (0.2-1.0); Potassium 4.7 mmol/L (3.5-5.1); Protein, Total 7.4 g/dL (6.4-8.2)
[2020-04-06] MEDS: INSULIN -REGULAR HUMAN 50 UNIT/0.5 ML ML SQ SCH (07:30)
[2020-04-06 08:45] VITALS: BP 124/65; TEMP 97.1
[2020-04-06] MEDS ORDERED: ASPIRIN EC 81 MG TAB PO SCH (09:00)
[2020-04-06] MEDS ORDERED: AMLODIPINE 10 MG TAB PO SCH (09:00)
[2020-04-06] MEDS: CHLORTHALIDONE 25 MG TAB PO SCH (09:00)
[2020-04-06] MEDS: HYDRALAZINE HCL 25 MG TABLET PO SCH (09:44)
--- NOTE | 2020-04-06 09:51 | P.CNS ---
Date of Consult: 04/06/20 Chief Complaint: dry mouth and throat History of Present Illness: 40 yr old Obese AA man with PMhx of HTN , CKD stage III baseline Cr ~ 2.5 Pt presented for worsening dry mouth and difficulty swallowing , his BP meds were changed recently , he was on ARB and aldactone in ER k of 6.2 with cr of 3.1 No fever , chills, sick contact in ER Bp controlled Physical exam general: AAOX3, NAD , obese Neck; Supple, No elevated JVD hear: RRR, normal S1,2 no murmur or rub Chest: CTAB, no rlaes or wheezes Abdomen: Soft , Nt Extremities Ntrace edema A/P MARCELA on CKD IIIb likely AG induced Cr improving now , near baseline Hyperkalmeia resolved due to losartan and aldactone cont to hold for now Agree with chlorthalidone HTN Bp controlled now Cont current meds Dry mouth resolved afebrile, no sick contact possibly med Side effect total time spent 45min pt can be discharged from nephrology point of view to follow with nephrology clinic in 2wks Allergies No Known Allergies Allergy (Verified 04/05/20 16:56) Home Medications: Amlodipine [Norvasc*] 10 mg PO DAILY 04/05/20 Carvedilol [Coreg] 25 mg PO BID 04/05/20 Doxazosin [Cardura*] 2 mg PO BID 04/05/20 Hydralazine HCl [Apresoline] 100 mg PO BID 04/05/20 - Past Medical/Surgical History Diabetic: No -: HTN, OBESITY - Family History Father Medical History: Hypertension - Social History Alcohol use: No CD- Drugs: No Caffeine use: No Place of Residence: Home Physical Examination Temp Pulse Resp BP Pulse Ox 97.1 F 62 16 124/65 98 04/06/20 08:00 04/06/20 08:00 04/06/20 08:00 04/06/20 08:00 04/06/20 08:00 Laboratory Data (last 24 hrs) 04/05/20 12:05: Sodium 136, Potassium 6.0 H*, BUN 49 H, Creatinine 3.19 H, Gluco se 111 H 04/05/20 12:05: WBC 6.9, Hgb 11.2 L, Hct 33.6 L, Plt Count 160
[2020-04-06] MEDS ORDERED: DOXAZOSIN 2 MG TAB PO SCH (21:00)
--- NOTE | 2020-04-07 02:50 | DS ---
Date of Discharge: 04/06/2020 Consultants: Dr. Ballard with Nephrology. Discharge Diagnoses: 1.Hyperkalemia. 2.Metabolic acidosis. 3.Acute on chronic kidney disease stage 3. 4.Essential hypertension. 5.Morbid obesity, BMI of 41. Hospital Course: Patient is a 40-year-old male with past medical history of hypertension, chronic ki dney disease, morbid obesity, comes in with dry mouth and throat. He was found to have elevated pota ssium level of 6.2, creatinine of 3.1, which is above his baseline of about 2.5. Patient was given h yperkalemic cocktail and his potassium was corrected. He was told to hold his losartan. Otherwise, his blood pressure remained stable. Patient was seen by a telegraph dispatcher, Dr. Ballard. He was then cleared for discharge. Patient was doing well otherwise. Patient needs to have close followup with primary care physician and telegraph dispatcher, Dr. Guo in 1-2 weeks and repeat potassium level in 1-2 week s. Return to ER for worsening condition, hold losartan for now. Diet: Renal. Activity: As tolerated. Medications: As per medication reconciliation list. Stop aldactone. Physical Examination: General: Awake alert oriented x3. Morbidly obese male, no acute distress. CV: S1, S2. Respiratory: Moving air well bilaterally. Abdomen: Soft, nontender, nondistended. Positive bowel sounds. Extremities: No clubbing, cyanosis, or edema. Neurologic: Nonfocal. SA/MODL Voice ID: [id number] Report ID: [id number]
== END 2020-04-06 11:14 | disposition home or self-care (01) ==
LOC: ER 10:55 → ERHOLD 14:43 → 2ND 16:04
PROVIDERS: ADMIT Internal Medicine; ATTEND Internal Medicine
DX: N17.9 Acute kidney failure, unspecified (principal); I12.9 Hypertensive chronic kidney disease with stage 1 through stage 4 chronic kidney disease, or unspecified chronic kidney disease; N18.3 Chronic kidney disease, stage 3 (moderate); E87.5 Hyperkalemia; E87.2 Acidosis; E66.01 Morbid (severe) obesity due to excess calories; Z68.41 Body mass index [BMI] 40.0-44.9, adult; Z11.59 Encounter for screening for other viral diseases; Z79.899 Other long term (current) drug therapy
CPT/HCPCS: 96365; 93005; 85025 ×2; 80048 ×2; 36415; 82947 ×3; 84443; 81003; 80053; 96375; 99285; 96366; U0002; J0610; J7030 ×2; G0378 ×3

== ENCOUNTER 2020-09-08 14:23 | Emergency (ER) | payer BC ==
--- OUTSIDE RECORDS SUMMARY | 2020-09-08 14:25 | XMS REPORT | Continuity of Care Document ---
:1980 Author Organization [facility] t Address [address] [place] [address] Dr. Sandoval [address] [place] [id number] Care Team Providers Name Role Phone Unavailable Unavailable Unavailable Problems This patient has no known problems. Allergies, Adverse Reactions, Alerts This patient has no known allergies or adverse reactions. Medications This patient has no known medications. Procedures This patient has no known procedures. Results This patient has no known results.
--- NOTE | 2020-09-08 15:50 | RAD REPORT ---
EXAM DESCRIPTION: CT - Stone Protocol - 09/08/2020 3:28 pm CLINICAL HISTORY: Abdominal pain. COMPARISON: 2018 TECHNIQUE: Computed axial tomography of the abdomen pelvis was obtained without oral or IV contrast. Lack of IV and oral contrast limits evaluation of solid organs, bowel, and vessels. Coronal reformat mark images were obtained and reviewed. All CT scans are performed using dose optimization technique as appropriate and may include automated exposure control or mA/KV adjustment according to patient size. FINDINGS: A renal calculus is not seen. An ureteral calculus is not noted. A bladder calculus is not present. Small renal cysts are present The liver, spleen, pancreas and adrenals appear grossly normal There is no evidence of diverticulitis. The appendix appears normal A small umbilical hernia contains fat. Small inguinal hernias IMPRESSION: Negative for a genitourinary calculus
[2020-09-08 16:06] LABS: Absolute Lymphocytes (CBC) 1.2 K/uL (0.7-4.9); Basophils % 0.7 % (0-1.3); Lymphocytes % 19.1 % (15.3-44.8); MPV 8.8 fL (7.6-11.3); RBC Red Blood Cell Count 5.01 M/uL (4.33-5.43)
[2020-09-08 16:22] LABS: ALT/SGPT 24 U/L (12-78); AST/SGOT 18 U/L (15-37); Albumin 3.5 g/dL (3.4-5.0); Alkaline Phosphatase 70 U/L (45-117); BUN Blood Urea Nitrogen 24 mg/dL (7-18); Bicarbonate 30 mmol/L (21-32); Bilirubin Direct < 0.1 mg/dL (0-0.2); Bilirubin Total 0.7 mg/dL (0.2-1.0); Glucose Level 94 mg/dL (74-106); Lipase 151 U/L (73-393); Potassium 3.5 mmol/L (3.5-5.1); Protein, Total 7.6 g/dL (6.4-8.2); Sodium Level 142 mmol/L (136-145)
[2020-09-08] MEDS ORDERED: NA CHLORIDE 0.9% 1,000 ML ONE (16:55)
[2020-09-08] MEDS ORDERED: HYDRALAZINE HCL 20 MG/ML VIAL ONE (16:55)
--- NOTE | 2020-09-08 17:31 | EDPHYS ---
Physician Documentation [facility] Name: Benjamin Baer III Age: 40 yrs Sex: Male : 1980 Arrival Date: 09/08/2020 Time: 14:24 Bed 4 Private MD: ED Physician Fabio Chiang HPI: 09/08 15:10 This 40 yrs old Black Male presents to ER via Ambulatory with complaints of Low Back cp Pain, Side Pain, Chest Pain. 15:10 The patient presents with pain that is acute, with no known mechanism of injury. The cp symptoms are located in the low back area. 15:10 The pain radiates to the mid back and abdomen and left side of chest. The problem was cp sustained from unknown cause. Onset: The symptoms/episode began/occurred 4 day(s) ago, intermittent. Associated signs and symptoms: Pertinent negatives: constipation, fever, incontinence, numbness, urinary retention, weakness. Severity of symptoms: in the emergency department the symptoms have improved, moderately. Historical: - Allergies: 14:48 No Known Allergies; jd3 - Home Meds: 14:48 carvedilol 25 mg Oral tab 1 tab 2 times per day [Active]; hydralazine 50 mg Oral tab jd3 three times a day [Active]; 14:52 doxazosin oral oral [Active]; jd3 - PMHx: 14:48 Hypertension; kidney failure; jd3 - PSHx: 14:48 None; jd3 - Immunization history:: Adult Immunizations up to date. - Social history:: Smoking status: Patient denies any tobacco usage or history of. ROS: 15:15 Constitutional: Negative for body aches, chills, fever, poor PO intake. cp 15:15 Eyes: Negative for injury, pain, redness, and discharge. cp 15:15 Neck: Negative for pain with movement, pain at rest, stiffness. 15:15 Cardiovascular: Negative for chest pain, palpitations. 15:15 Respiratory: Negative for cough, shortness of breath, wheezing. 15:15 Abdomen/GI: Negative for abdominal pain, nausea, vomiting, and diarrhea, constipation, black/tarry stool, rectal bleeding, bowel incontinence. 15:15 Back: Positive for pain at rest, pain with movement, of the low back area, Negative for injury or acute deformity, decreased range of motion. 15:15 : Negative for urinary symptoms, difficulty urinating, bladder incontinence, testicular pain 15:15 Neuro: Negative for dizziness, headache, numbness, tingling, weakness. 15:15 All other systems are negative. Exam: 15:20 Constitutional: The patient appears in no acute distress, alert, awake, cp non-diaphoretic, non-toxic, well developed, well nourished, obese. 15:20 Head/Face: Normocephalic, atraumatic. cp 15:20 Eyes: Periorbital structures: appear normal, Conjunctiva: normal, no exudate, no injection, Sclera: no appreciated abnormality, Lids and lashes: appear normal, bilaterally. 15:20 ENT: External ear(s): are unremarkable, Nose: is normal, Mouth: Lips: moist, Oral mucosa: moist, Posterior pharynx: Airway: no evidence of obstruction, patent. 15:20 Neck: ROM/movement: is normal, is supple, without pain, no range of motions limitations. 15:20 Chest/axilla: Inspection: normal, Palpation: is normal, no crepitus, no tenderness. 15:20 Cardiovascular: Rate: normal, Rhythm: regular. 15:20 Respiratory: the patient does not display signs of respiratory distress, Respirations: normal, no use of accessory muscles, no retractions, labored breathing, is not present, Breath sounds: are clear throughout, no decreased breath sounds, no stridor, no wheezing. 15:20 Abdomen/GI: Inspection: abdomen appears normal, Bowel sounds: active, all quadrants, Palpation: abdomen is soft and non-tender, in all quadrants, rebound tenderness, is not appreciated, involuntary guarding, is not appreciated. 15:20 Back: pain, that is very mild, of the low back area, ROM is normal, CVA tenderness, is absent, vertebral tenderness, is not appreciated. 15:20 Neuro: Motor: moves all fours, Sensation: is normal, Gait: is steady. Vital Signs: 14:49 BP 174 / 113; Pulse 74; Resp 16 S; Temp 97.6(TE); Pulse Ox 99% on R/A; Weight 136.08 kg jd3 (R); Height 5 ft. 10 in. (177.80 cm) (R); Pain 7/10; 15:50 BP 184 / 111; Pulse 65; Resp 17; Pulse Ox 99% ; rb3 17:00 BP 167 / 110; Pulse 82; Resp 17; Pulse Ox 100% ; bp 18:24 BP 166 / 101; Pulse 71; Resp 16; Temp 97.5; Pulse Ox 99% ; bp 14:49 Body Mass Index 43.05 (136.08 kg, 177.80 cm) jd3 MDM: 15:00 Patient medically screened. cp 16:00 Differential diagnosis: sciatica, Herniated disc UTI, pyelonephritis, cauda equina, cp spinal stenosis, kidney stone. 17:30 Data reviewed: vital signs, nurses notes, lab test result(s), radiologic studies, CT cp scan, and as a result, I will discharge patient. 17:30 Counseling: I had a detailed discussion with the patient and/or guardian regarding: the cp historical points, exam findings, and any diagnostic results supporting the discharge/admit diagnosis, lab results, the need for outpatient follow up, a family practitioner, to return to the emergency department if symptoms worsen or persist or if there are any questions or concerns that arise at home. ED course: VSS. Discussed results of labs that showed no significant change in serum creatinine. Blood pressure elevated. Will discharge to home, recommend f/u with PCP. 17:33 ED course: no active RXs noted for narcotic pain medications according to [facility] prescription website. 09/08 15:05 Order name: Basic Metabolic Panel; Complete Time: 16:25 09/08 16:26 Interpretation: Normal except: BUN 24; CRE 2.25; GFR 39. 09/08 15:05 Order name: CBC with Diff; Complete Time: 16:25 09/08 15:05 Order name: Hepatic Function; Complete Time: 16:25 09/08 15:05 Order name: Lipase; Complete Time: 16:25 09/08 15:05 Order name: Urine Microscopic Only 09/08 17:34 Order name: Urine Dipstick--Ancillary (enter results) co 09/08 15:05 Order name: IV Saline Lock; Complete Time: 16:01 09/08 15:05 Order name: Labs collected and sent; Complete Time: 15:08 09/08 15:05 Order name: Urine Dipstick-Ancillary (obtain specimen); Complete Time: 17:28 09/08 15:05 Order name: CT Stone Protocol; Complete Time: 16:25 cp Administered Medications: 16:45 Drug: NS 0.9% 1000 ml Route: IV; Rate: 1 bolus; Site: right antecubital; bp 17:41 Follow up: IV Status: Completed infusion; IV Intake: 1000ml bp 16:45 Drug: hydrALAZINE 10 mg Route: IV; Rate: calculated rate; Site: right antecubital; bp 17:41 Follow up: IV Status: Completed infusion bp 17:25 Drug: HydrALAZINE 50 mg Route: PO; bp 17:41 Follow up: Response: No adverse reaction bp Disposition: 09/09 07:03 Co-signature as Attending Physician, Fabio Chiang MD. rn Disposition: 09/08/20 17:30 Discharged to Home. Impression: Low back pain, Hypertensive chronic kidney disease. - Condition is Stable. - Discharge Instructions: Back Pain, Adult, Back Exercises. - Prescriptions for Cyclobenzaprine 10 mg Oral Tablet - take 1 tablet by ORAL route every 8 hours As needed no driving while taking medication; 20 tablet. Tramadol 50 mg Oral Tablet - take 1 tablet by ORAL route every 8 hours as needed; 12 tablet. - Medication Reconciliation Form, Thank You Letter, Antibiotic Education, Prescription Opioid Use form. - Follow up: Private Physician; When: 2 - 3 days; Reason: Recheck today's complaints. - Problem is new. - Symptoms have improved. Signatures: Dispatcher [employer] EDMS Fabio Chiang MD MD rn Silverio Pelletier PA PA cp Davies, Jonathon, RN RN jd3 Peltier, Brian, RN RN bp Corrections: (The following items were deleted from the chart) 09/08 14:52 14:48 Home Meds: spironolactone 25 mg Oral tab 1 tab once daily; sushant jd3 14:52 14:48 Home Meds: lisinopril 20 mg Oral tab 1 tab once daily; jd3 jd3 18:26 17:30 09/08/2020 17:30 Discharged to Home. Impression: Low back pain; Hypertensive bp chronic kidney disease. Condition is Stable. Forms are Medication Reconciliation Form, Thank You Letter, Antibiotic Education, Prescription Opioid Use. Follow up: Private Physician; When: 2 - 3 days; Reason: Recheck today's complaints. Problem is new. Symptoms have improved. cp
--- NOTE | 2020-09-08 17:31 | ER ---
Nurse's Notes [facility] Name: Benjamin Baer III Age: 40 yrs Sex: Male : 1980 Arrival Date: 09/08/2020 Time: 14:24 Bed 4 Private MD: Diagnosis: Low back pain;Hypertensive chronic kidney disease Presentation: 09/08 14:47 Chief complaint: Patient states: "My lower back has been hurting me and it goes up my jd3 back.". Coronavirus screen: At this time, the client does not indicate any symptoms associated with coronavirus-19. Ebola Screen: Patient negative for fever greater than or equal to 101.5 degrees Fahrenheit, and additional compatible Ebola Virus Disease symptoms. Initial Sepsis Screen: Does the patient meet any 2 criteria? No. Patient's initial sepsis screen is negative. Does the patient have a suspected source of infection? No. Patient's initial sepsis screen is negative. Risk Assessment: Do you want to hurt yourself or someone else? Patient reports no desire to harm self or others. Onset of symptoms was September 05, 2020. 14:47 Method Of Arrival: Ambulatory j 14:47 Acuity: FAUZIA 4 jd3 Triage Assessment: 15:00 General: Appears in no apparent distress. uncomfortable, obese, Behavior is calm, bp cooperative, appropriate for age. Pain: Complains of pain in low back area. EENT: No deficits noted. Neuro: Level of Consciousness is awake, alert, obeys commands, Oriented to Appropriate for age. Cardiovascular: Rhythm is sinus rhythm. Respiratory: No deficits noted. GI: No signs and/or symptoms were reported involving the gastrointestinal system. : No signs and/or symptoms were reported regarding the genitourinary system. Derm: No deficits noted. Musculoskeletal: No deficits noted. Historical: - Allergies: 14:48 No Known Allergies; jd3 - Home Meds: 14:48 carvedilol 25 mg Oral tab 1 tab 2 times per day [Active]; hydralazine 50 mg Oral tab jd3 three times a day [Active]; 14:52 doxazosin oral oral [Active]; jd3 - PMHx: 14:48 Hypertension; kidney failure; jd3 - PSHx: 14:48 None; jd3 - Immunization history:: Adult Immunizations up to date. - Social history:: Smoking status: Patient denies any tobacco usage or history of. Screenin:55 Abuse screen: Denies threats or abuse. Nutritional screening: No deficits noted. rb3 Tuberculosis screening: No symptoms or risk factors identified. Fall Risk None identified. Assessment: 14:55 General: Appears in no apparent distress. comfortable, Behavior is calm, cooperative. rb3 Pain: Complains of pain in low back Pain radiates to upper back Pain began x 3 days. Neuro: Level of Consciousness is awake, alert, obeys commands, Oriented to person, place, time, situation. Cardiovascular: Capillary refill < 3 seconds. Respiratory: Airway is patent Respiratory effort is even, unlabored, Respiratory pattern is regular, symmetrical. GI: No signs and/or symptoms were reported involving the gastrointestinal system. : No signs and/or symptoms were reported regarding the genitourinary system. 15:55 Reassessment: Patient appears in no apparent distress at this time. No changes from rb3 previously documented assessment. 17:00 Reassessment: Patient appears in no apparent distress at this time. No changes from bp previously documented assessment. Patient is alert, oriented x 3, equal unlabored respirations, skin warm/dry/pink. 18:00 Reassessment: Patient appears in no apparent distress at this time. No changes from rb3 previously documented assessment. 18:24 Reassessment: PT D/C HOME AMBULATORY WITH FAMILY, DX WITH HYPERTENSIVE URGENCY AND bp LUMBAR PAIN. Vital Signs: 14:49 BP 174 / 113; Pulse 74; Resp 16 S; Temp 97.6(TE); Pulse Ox 99% on R/A; Weight 136.08 kg jd3 (R); Height 5 ft. 10 in. (177.80 cm) (R); Pain 7/10; 15:50 BP 184 / 111; Pulse 65; Resp 17; Pulse Ox 99% ; rb3 17:00 BP 167 / 110; Pulse 82; Resp 17; Pulse Ox 100% ; bp 18:24 BP 166 / 101; Pulse 71; Resp 16; Temp 97.5; Pulse Ox 99% ; bp 14:49 Body Mass Index 43.05 (136.08 kg, 177.80 cm) jd3 ED Course: 14:24 Patient arrived in ED. ag5 14:48 Triage completed. jd3 14:48 Arm band placed on. jd3 14:53 Silverio Pelletier PA is PHCP. cp 14:53 Fabio Chiang MD is Attending Physician. cp 14:54 Cristi Gilliland, RN is Primary Nurse. bp 14:55 Patient has correct armband on for positive identification. Bed in low position. Call rb3 light in reach. Side rails up X 1. tin container straightener on. Pulse ox on. NIBP on. 14:55 Patient maintains SpO2 saturation greater than 95% on room air. rb3 15:15 Missed attempt(s): 20 gauge in left antecubital area. rb3 15:27 Primary Nurse role handed off by Cristi Gilliland, RN rb3 15:27 Claudia Bob, RN is Primary Nurse. rb3 15:28 CT Stone Protocol In Process Unspecified. EDMS 18:24 No provider procedures requiring assistance completed. IV discontinued, intact, bp bleeding controlled, No redness/swelling at site. Pressure dressing applied. Administered Medications: 16:45 Drug: NS 0.9% 1000 ml Route: IV; Rate: 1 bolus; Site: right antecubital; bp 17:41 Follow up: IV Status: Completed infusion; IV Intake: 1000ml bp 16:45 Drug: hydrALAZINE 10 mg Route: IV; Rate: calculated rate; Site: right antecubital; bp 17:41 Follow up: IV Status: Completed infusion bp 17:25 Drug: HydrALAZINE 50 mg Route: PO; bp 17:41 Follow up: Response: No adverse reaction bp Intake: 17:41 IV: 1000ml; Total: 1000ml. bp Outcome: 17:30 Discharge ordered by MD. cp 18:24 Discharged to home ambulatory. bp 18:24 Condition: stable 18:24 Discharge instructions given to patient, Instructed on discharge instructions, follow up and referral plans. medication usage, Demonstrated understanding of instructions, follow-up care, medications, Prescriptions given X 2. 18:26 Patient left the ED. bp Signatures: Dispatcher [employer] EDMS Silverio Pelletier PA PA cp Davies, Jonathon, RN RN Cristi Nieto, RN RN bp Ronald Gagetherese ag5 Claudia Bob, RN RN rb3 Corrections: (The following items were deleted from the chart) 14:52 14:48 Home Meds: spironolactone 25 mg Oral tab 1 tab once daily; sushant jd3 14:52 14:48 Home Meds: lisinopril 20 mg Oral tab 1 tab once daily; jd3 jd3 14:52 14:49 Pulse 74bpm; Resp 16bpm; Spontaneous; Pulse Ox 99% RA; Temp 97.6F Temporal; jd3 136.08 kg Reported; Height 5 ft. 10 in. Reported; BMI: 43.0; Pain 05/04; jd3 16:01 14:55 Pain: Complains of pain in low back Pain radiates to upper back rb3 rb3
[2020-09-08 17:40] LABS: Urine Blood NEGATIVE (NEG); Urine Glucose NEGATIVE (NEG); Urine Protein 1+ (NEG); Urine Specific Gravity 1.015 (1.005-1.030); Urine pH 6.5 (5.0-7.0)
[2020-09-08] MEDS ORDERED: HYDRALAZINE HCL 10 MG TABLET ONE (17:45)
[2020-09-08 17:52] LABS: Urine Bacteria <20 /HPF (NONE SEEN); Urine Culture Reflex Order NOT NEEDED; Urine RBC <5 /HPF (NONE SEEN)
[2020-09-08 21:39] VITALS: BP 166/101; TEMP 97.5; O2SAT 99
== END 2020-09-08 18:26 | disposition home or self-care (01) ==
LOC: ER 14:23
DX: M54.5 Low back pain (principal); I12.9 Hypertensive chronic kidney disease with stage 1 through stage 4 chronic kidney disease, or unspecified chronic kidney disease; N18.9 Chronic kidney disease, unspecified
CPT/HCPCS: 96365; 85025; 80048; 36415; 80076; 83690; 76377; 74176; 99285; J0360; J7030; 81003; 81015